=== PATIENT | male | born 1960 | race African-American/Black ===

== ENCOUNTER 2020-08-03 11:16 | Emergency (ER) | payer BC, OTHER ==
[~2020-08-03] VITALS: Ht 175.3 cm; Wt 70.5 kg
[~2020-08-03 11:16] MED LIST: ASPIRIN E.C. 8181 MG PO; BRILINTA90 MG PO; COREG 3.123.125 MG/T PO; LIPITOR 40MG TA40 MG PO; LIPITOR20 MG PO; NORVASC 10MG10 MG PO; PRINZIDE 12.5 M1 TA1 PO; RANEXA 500MG T500 MG PO; TIAZAC180 MG PO
[2020-08-03 11:36] VITALS: TEMP 98.7
[2020-08-03 12:34] LABS: BASO % 0.4 % (0.0-2.0); EOS % 0.2 % (0-4.0); GRAN # 3.7 (1.4-6.5); GRAN % 71.6 % (42.2-75.2); HEMATOCRIT 38.2 % (42.0-52.0); HEMOGLOBIN 13.4 g/dl (13.5-18.0); LYMPH # 0.9 (1.2-3.4); LYMPH % 18.2 % (20.0-51.0); MEAN CELL VOLUME 97 fl (80.0-100.0); MEAN CORPUSCULAR HEMOGLOBIN 34 pg (27.0-31.0); MEAN CORPUSCULAR HGB CONC 35 g/dl (33.0-37.0); MONO # 0.5 (0.1-0.6); MONO % 9.2 % (1.7-9.3); PLATELET COUNT 253 K/mm3 (130-400); RED BLOOD COUNT 3.95 M/mm3 (4.20-5.60); REDCELL DISTRIBUTION WIDTH-CV 12.1 % (11.5-14.5)
[2020-08-03 12:48] LABS: ALANINE AMINOTRANSFERASE 66 U/L (4-49); ALBUMIN 4.3 gm/dL (3.5-5.0); ALKALINE PHOSPHATASE 62 U/L (50-136); ANION GAP 6 mmol/L (7-16); AST,SGOT 104 U/L (15-37); BILIRUBIN,TOTAL 0.7 mg/dL (0.0-1.0); BLOOD UREA NITROGEN 21 mg/dL (9-20); CALCIUM 9.4 mg/dL (8.4-10.2); CARBON DIOXIDE 27 mmol/L (22-30); CHLORIDE 104 mmol/L (98-107); CREATININE, serum 1.38 (0.66-1.25); GLUCOSE 78 mg/dL (74-106); POTASSIUM 4.2 mmol/L (3.4-5.0); SODIUM 137 mmol/L (137-145); TOTAL PROTEIN 9.2 gm/dL (6.4-8.2)
[2020-08-03 12:59] LABS: TROPONIN-I < 0.012 ng/mL (0.000-0.035)
[2020-08-03] MEDS ORDERED: FLEXERIL 1010 MG/TAB PO (13:38)
[2020-08-03 14:31] VITALS: BP 155/87; PULSE 78
== END 2020-08-03 14:35 | disposition home or self-care (01) ==
LOC: COL.ER 11:16
PROVIDERS: Physician Assistant
DX: R07.9 Chest pain, unspecified (principal); R79.89 Other specified abnormal findings of blood chemistry; R53.81 Other malaise; R53.83 Other fatigue; I10 Essential (primary) hypertension; I25.10 Atherosclerotic heart disease of native coronary artery without angina pectoris; F17.210 Nicotine dependence, cigarettes, uncomplicated; Z95.9 Presence of cardiac and vascular implant and graft, unspecified; Z79.82 Long term (current) use of aspirin; Z79.899 Other long term (current) drug therapy; Z79.02 Long term (current) use of antithrombotics/antiplatelets

== ENCOUNTER 2020-12-20 08:01 | Outpatient (RCR) | payer OTHER ==
[~2020-12-20 08:01] MED LIST changes: +FLEXERIL 1010 MG/TAB PO
== END 2021-02-09 | disposition home or self-care (01) ==
LOC: WSOH
DX: S76.911A Strain of unspecified muscles, fascia and tendons at thigh level, right thigh, initial encounter (principal); F17.210 Nicotine dependence, cigarettes, uncomplicated; I10 Essential (primary) hypertension; Z95.5 Presence of coronary angioplasty implant and graft; Z90.89 Acquired absence of other organs; Y99.0 Civilian activity done for income or pay

== ENCOUNTER 2021-09-13 08:50 | Emergency (ER) | payer BC ==
[~2021-09-13] VITALS: Ht 175.3 cm; Wt 74.1 kg
[2021-09-13 09:10] VITALS: TEMP 98
[2021-09-13 09:33] LABS: BASO % 0.4 % (0.0-2.0); EOS % 0.4 % (0.0-4.0); GRAN # 3.1 K/mm3 (1.4-6.5); GRAN % 67.3 % (42.2-75.2); HEMATOCRIT 39.7 % (42.0-52.0); HEMOGLOBIN 13.7 g/dl (13.5-18.0); LYMPH % 20.9 % (20.0-51.0); MEAN CELL VOLUME 101 fl (80.0-100.0); MEAN CORPUSCULAR HEMOGLOBIN 35 pg (27-31); MEAN CORPUSCULAR HGB CONC 35 g/dl (33.0-37.0); MEAN PLATELET VOLUME 9.3 fl (7.4-10.4); MONO # 0.5 K/mm3 (0.1-0.6); MONO % 10.8 % (1.7-9.3); PLATELET COUNT 251 K/mm3 (130-400); RED BLOOD COUNT 3.92 M/mm3 (4.20-5.60); REDCELL DISTRIBUTION WIDTH-CV 12.1 % (11.5-14.5)
[2021-09-13 09:46] LABS: ALBUMIN 3.4 gm/dL (3.4-4.8); BILIRUBIN,TOTAL 1.2 mg/dL (0.2-1.2); CALCIUM 9.1 mg/dL (8.4-10.2); CREATININE, serum 1.38 mg/dL (0.72-1.25); TOTAL PROTEIN 7.6 gm/dL (6.2-8.1)
[2021-09-13 09:52] LABS: TROPONIN-I 0.013 ng/mL (0.00-0.033)
[2021-09-13 11:30] VITALS: BP 168/108; PULSE 70
== END 2021-09-13 11:10 | disposition home or self-care (01) ==
LOC: COL.ER 08:50
PROVIDERS: Emergency Medicine
DX: I10 Essential (primary) hypertension (principal); Z79.899 Other long term (current) drug therapy